=== PATIENT | male | born 1990 | race Caucasian/White ===

== ENCOUNTER 2020-02-03 18:39 | Emergency (ER) | payer OTHER ==
[~2020-02-03] VITALS: Ht 172.7 cm; Wt 74.8 kg
[~2020-02-03 18:39] MED LIST: ACETAMINOPHEN-1 EAC1 PO; APAP/CODEINE ELI5 ML PO; ERYTHROMYCIN E3.5 G1 OP; NAPRELAN500 M1 PO; NOHOMEMEDICATIONS; OSELB75 PO; ULTRAM 50MG TAB50 MG PO
[2020-02-03] MEDS ORDERED: ABILIFY10 MG PO (18:54)
[2020-02-03] MEDS ORDERED: DEPRESSION MED (18:54)
[2020-02-03] MEDS ORDERED: ANXIETY MED (18:54)
[2020-02-03] MEDS ORDERED: ZPAK PO (19:33)
[2020-02-03 19:42] VITALS: BP 126/88
== END 2020-02-03 19:43 | disposition home or self-care (01) ==
LOC: M.ERS 18:39
DX: R09.81 Nasal congestion (principal); Z20.828 Contact with and (suspected) exposure to other viral communicable diseases; R51.9 Headache, unspecified; Z88.1 Allergy status to other antibiotic agents; Z90.49 Acquired absence of other specified parts of digestive tract; Z90.89 Acquired absence of other organs